=== PATIENT | female | born 1980 | race Two or more races ===

== ENCOUNTER 2017-09-24 18:00 | Emergency (ER) | payer MEDICAID ==
[~2017-09-24] VITALS: Ht 162.6 cm; Wt 70.3 kg
[2017-09-24 18:07] VITALS: BP 126/75
== END 2017-09-24 19:40 | disposition left against medical advice (07) ==
LOC: ER 18:05
DX: M79.675 Pain in left toe(s) (principal); Z53.21 Procedure and treatment not carried out due to patient leaving prior to being seen by health care provider